=== PATIENT | female | born 1995 | race African-American/Black ===

== ENCOUNTER 2019-08-25 16:23 | Inpatient (IN) ==
[2019-08-25] MEDS ORDERED: CEFTAROLINE 600 MG in SODIUM CHLORIDE 0.9% 100 ML IV STA (17:42)
[2019-08-25 18:20] LABS: Basophils % 0.1 % (0.0-0.8); Eosinophils % 0.6 % (0.00-10.9); Hematocrit 34.2 VOL% (35.7-47.0); Hemoglobin 10.9 GM/DL (12.0-16.0); Immature Granulocytes % 0.3 %; Immature Granulocytes Absolute 0.02 #; Lymphocytes % 29.7 % (21.3-54.2); Mean Corpuscular HGB Conc 31.9 GM/DL (32-36); Mean Corpuscular Volume 81.2 FL (87-102); Mean Platelet Volume 12.1 FL (9.6-12.0); Monocytes % 10.1 % (1.7-12.7); Neutrophils % 59.2 % (38.7-73.9); Platelet Count 246 T/CUMM (130-400); Red Blood Count 4.21 MC/CUMM (3.8-5.5); Red Cell Distribution Width 13.7 % (9.3-17.3); White Blood Count 6.7 T/CUMM (4-12)
[2019-08-25 18:35] LABS: Osmolality,Calculated 272.7 MOS/KG (273-304)
[2019-08-25] MEDS ORDERED: SILVER SULFADIAZINE 1% CREAM 25 GM TUBE TOP ONE (19:48)
[2019-08-25] MEDS ORDERED: SILVER SULFADIAZINE 1% CREAM 25 GM TUBE TOP STA (19:59)
[2019-08-25] MEDS ORDERED: MORPHINE 4 MG/1 ML VIAL IV PRN (21:04)
[2019-08-25] MEDS ORDERED: ONDANSETRON 4 MG/2 ML VIAL IV PRN (21:04)
[2019-08-25] MEDS ORDERED: ACETAMINOPHEN 325 MG TABLET PO PRN (21:04)
[2019-08-25] MEDS: VANCOMYCIN INJ 1,500 MG in SODIUM CHLORIDE 0.9% 500 ML IV SCH (22:02)
[2019-08-25] MEDS: SODIUM CHLORIDE 0.45% 1,000 ML IV SCH (22:07)
[2019-08-26] MEDS: VANCOMYCIN INJ 1,500 MG in SODIUM CHLORIDE 0.9% 500 ML IV SCH ×3 (06:20→21:40)
[2019-08-26] MEDS: SODIUM CHLORIDE 0.45% 1,000 ML IV SCH (08:07)
[2019-08-26] MEDS: PANTOPRAZOLE 40 MG TABLET PO SCH (08:41)
[2019-08-26] MEDS ORDERED: DICYCLOMINE 20 MG TABLET PO PRN (08:43)
[2019-08-26] MEDS: LABETALOL 100 MG TABLET PO SCH ×2 (08:55→21:40)
[2019-08-26] MEDS ORDERED: SODIUM CHLORIDE 0.45% 1,000 ML IV SCH (09:00)
[2019-08-26] MEDS: CHLORHEXIDINE 4% SOLN 118 ML BOTTLE TOP SCH (12:34)
[2019-08-26] MEDS: SILVER SULFADIAZINE 1% CREAM 25 GM TUBE TOP SCH (12:34)
[2019-08-27] MEDS: PANTOPRAZOLE 40 MG TABLET PO SCH (09:41)
[2019-08-27] MEDS: LABETALOL 100 MG TABLET PO SCH (09:42)
[2019-08-27] MEDS: CHLORHEXIDINE 4% SOLN 118 ML BOTTLE TOP SCH (09:43)
[2019-08-27] MEDS: SILVER SULFADIAZINE 1% CREAM 25 GM TUBE TOP SCH (09:43)
[2019-08-27] MEDS ORDERED: VANCOMYCIN INJ 1,500 MG in SODIUM CHLORIDE 0.9% 500 ML IV SCH (10:00)
[2019-08-27 12:11] VITALS: BP 126/60
== END 2019-08-27 13:03 | disposition home or self-care (01) | DRG 603 ==
LOC: N.ED 16:23 → N.EDINP 19:44 → N.TELEN 20:42
PROVIDERS: ADMIT Surgery; ATTEND Surgery